=== PATIENT | female | born 1960 | race Caucasian/White ===

== ENCOUNTER → 2020-04-28 15:00 | Outpatient (ROUT) | payer OTHER, SELFPAY ==
[2020-04-28 15:29] LABS: Add Manual Diff / Slide Review NO; Basophils Absolute Auto 100 /uL (0-100); Basophils Percent Auto 1.2 % (0-2); Eosinophils Absolute Auto 200 /uL (0-450); Eosinophils Percent Auto 2.6 % (2-4); Hematocrit 39.4 % (36-46); Hemoglobin 13.1 g/dL (12.0-16.0); Lymphocytes Absolute Auto 2300 /uL (1100-4500); Lymphocytes Percent Auto 29.8 % (25-40); Mean Corpuscular HGB Conc 33.3 % (30-36); Mean Corpuscular Hemoglobin 27.2 PG (26-34); Mean Corpuscular Volume 81.6 fL (80-100); Monocytes Absolute Auto 500 /uL (0-900); Monocytes Percent Auto 6.3 % (3-14); Neutrophils Absolute Auto 4700 /uL (1500-7000); Neutrophils Percent Auto 60.1 % (50-75); Platelet Count 224 X10^3/uL (150-400); Red Blood Cell Count 4.84 X10^6/uL (4.0-5.2); Red Cell Distribution Width 13.6 % (11.6-14.8); White Blood Cell Count 7.8 X10^3/uL (4.5-11.0)
[2020-04-28 15:51] LABS: Alanine Aminotransferase 45 IU/L (<35); Albumin 4.2 g/dL (3.5-5.0); Albumin Globulin Ratio 1.4 (1.0-2.8); Alkaline Phosphatase 79 U/L (38-126); Aspartate Aminotransferase 34 IU/L (14-36); Bilirubin Total 0.4 mg/dL (0.2-1.3); Blood Urea Nitrogen 17 mg/dL (7-17); Calcium 10.1 mg/dL (8.4-10.2); Carbon Dioxide 29 mmol/L (22-32); Chloride 105 mmol/L (98-107); Cholesterol 166 mg/dL (140-199); Estimated Glomerular Filt Rate > 60.0 mL/min (>60); Globulin 2.9 g/dL (1.7-4.1); Glucose 88 mg/dL (80-110); HDL Cholesterol 64 mg/dL (40-60); HEMOLYSIS < 15 (0-50); LDL Cholesterol Calculated 61 mg/dL (<100); Potassium 4.5 mmol/L (3.4-5.1); Sodium 138 mmol/L (137-145); Total Protein 7.1 g/dL (6.3-8.2); Triglycerides 203 mg/dL (35-150)
[2020-04-28 16:17] LABS: TSH w/ Reflex to FT4 1.88 uIU/mL (0.47-4.68)
[2020-04-29 12:38] LABS: Parathyroid Hormone Int 37 pg/mL (15-65)
== END ==
PROVIDERS: Visit Provider Physician Assistant
DX: R01.1 Cardiac murmur, unspecified (principal); I10 Essential (primary) hypertension; R07.9 Chest pain, unspecified; E83.52 Hypercalcemia
CPT/HCPCS: 80053; 80061; 83970; 84443; 85025

== ENCOUNTER → 2022-07-11 06:57 | Outpatient (CLI) | payer OTHER, SELFPAY ==
[2022-07-11 08:07] LABS: Add Manual Diff / Slide Review NO; Basophils Absolute Auto 0 /uL (0-100); Basophils Percent Auto 0.7 % (0-2); Eosinophils Absolute Auto 200 /uL (0-450); Eosinophils Percent Auto 3.4 % (2-4); Hematocrit 37.7 % (36-46); Hemoglobin 12.4 g/dL (12.0-16.0); Lymphocytes Absolute Auto 1900 /uL (1100-4500); Lymphocytes Percent Auto 29.6 % (25-40); Mean Corpuscular Hemoglobin 26.7 PG (26-34); Mean Corpuscular Volume 80.8 fL (80-100); Monocytes Absolute Auto 400 /uL (0-900); Monocytes Percent Auto 6.5 % (3-14); Neutrophils Absolute Auto 3900 /uL (1500-7000); Neutrophils Percent Auto 59.8 % (50-75); Platelet Count 205 X10^3/uL (150-400); Red Blood Cell Count 4.66 X10^6/uL (4.0-5.2); Red Cell Distribution Width 13.7 % (11.6-14.8); White Blood Cell Count 6.4 X10^3/uL (4.5-11.0)
[2022-07-11 08:31] LABS: BUN Creatinine Ratio 26.5 (6-22); Blood Urea Nitrogen 18 mg/dL (7-17); Calcium 9.3 mg/dL (8.4-10.2); Carbon Dioxide 29 mmol/L (22-32); Chloride 100 mmol/L (98-107); Estimated Glomerular Filt Rate > 60 mL/min (>60); Glucose 156 mg/dL (80-110); HEMOLYSIS < 15 (0-50); Potassium 4.1 mmol/L (3.4-5.1); Sodium 136 mmol/L (137-145)
== END ==
LOC: LAB 07:03 → RESP 07:21
PROVIDERS: Referring Provider Orthopaedic Surgery Orthopaedic Surgery of the Spine; Visit Provider Orthopaedic Surgery Orthopaedic Surgery of the Spine
DX: Z01.818 Encounter for other preprocedural examination (principal); Z01.812 Encounter for preprocedural laboratory examination
CPT/HCPCS: 36415; 80048; 85025; 93005; 93010

== ENCOUNTER 2022-08-01 08:04 | Inpatient (IN) | payer OTHER, SELFPAY ==
[2022-07-12 07:37] VITALS: BMI 25.2
[2022-08-01] VITALS (16 sets, daily range): BP systolic 103–145; BP diastolic 60–93; PULSE 66–89; RESP 10–20; TEMP 36.2–36.8; O2SAT 91–100; BMI 26.1; BMI 28.1
[2022-08-01] MEDS: ACETAMINOPHEN 325 MG TABLET 975 MG PO (08:56)
[2022-08-01] MEDS: GABAPENTIN 600 MG TABLET PO (08:56)
[2022-08-01] MEDS: LACTATED RINGERS 1,000 ML 42 ML IV (08:57)
[2022-08-01 09:02] LABS: COVID19 -Nasal RAPID Negative (Negative)
--- NOTE | 2022-08-01 09:59 | PM.PREOP ---
Pre-operative Note COVID-19 COVID-19 status: Negative Result date/Date tested (Pos, Neg/Pending): 07/31/22 Criteria for continued procedure: Expected advancement of disease process, Possibility delay results in more complex future surgery or treatment, Increased loss of function, Continuing or worsening of significant or severe pain, Deterioration of the patient's condition or overall health and Delay expected to result in less-positive ultimate med/surg outcome Interval Note History & Physical reviewed/Exam performed by Physician: Yes Changes to H&P: No
[2022-08-01] MEDS: CEFAZOLIN 2 GM/100 ML PREMIX 100 ML IV ×2 (10:37→19:35)
--- NOTE | 2022-08-01 10:58 | SUR.OPER ---
Prone on spine table, head in foam head support, padded chest and pelvic supports, gel pad at knees, lower legs supported by pillows; nipples, genitalia and toes free of pressure, arms secured on foam padded arm boards at <90 degrees abduction. Tape over blanket at thigh secured to table.
[2022-08-01] MEDS: BUPIVACAINE 0.25% (PF) 60 ML, EPINEPHrine 0.3 MG INJ (11:03)
[2022-08-01] MEDS: BUPIVACAINE LIPOSOME 266 MG/20 ML VIAL INJ (12:30)
--- NOTE | 2022-08-01 12:42 | PM.OP.1 ---
Operative Date/Time/Diagnoses Date of procedure: 08/01/22 Time of procedure: 10:00 Pre-op diagnosis: 1. L3-4 spinal stenosis with neurogenic claudication 2. Lumbar spondylosis with radiculopathy Post-op diagnosis: same Procedure & Clinicians Procedure: 1. L3-4 Postero-lateral and posterior interbody fusion 2.L3-4 interbody cage placement. 3. L3-4 decompressive laminectomy with bilateral facetecomies 4. L3-4 Posterior non-segmental instrumentation 5. [place] of bone marrow from iliac crest 6. Utilization of microsurgical technique and operating microscope Same procedure as scheduled: Yes Indications: Patient has been having chronic back pain and worsening lumbar radiculopathy and symptoms of neurogenic claudication due to severe spinal stenosis at L3-4 level. Patient failed multiple conservative management with worsening pain weakness and numbness in her lower extremity. Patient has been having difficulty performing activity of daily living. After discussing risks benefits of treatment options, patient elected proceed with surgery. Surgeon: Joel Franks Medical Field Representative: Koki George Click Yes if Unassisted: No Anesthesia Type: General Operative Notes Closure Type: primary Specimen(s): none sent Prosthetic devices, grafts, tissues, transplants, or devices: Globus revolve screws, Rise cage Estimated Blood Loss (mL): 20 Blood products transfused: none Procedure in detail: Patient was seen in the preoperative area. Risks and benefits of the surgery was discussed with the patient. Informed consent was obtained from the patient and placed in the chart. Surgical site was marked. Patient was taken to the operative room. General anesthesia was administered. Prophylactic antibiotic was given to the patient less than 30 min before the incision was made. Patient was placed into a prone position on the Phillip table. Patient's back was then prepped and draped in the sterile fashion. Time-out was performed at this time. Using AP and lateral C-arm imaging the interval between L3-4 was identified and marked on patient's back. A 2 inch incision 2 in from midline was made on the left side first. The fascia was incised in line with skin incision. Globus MARS retractors was placed inside the incision and docked onto the L3 lamina. Using microsurgical technique and operating microscope, a L3 laminectomy and L3-4 facetectomy was performed using a Kerrison rongeur. Significant laminectomy bone along with facetectomy rendered the L3-4 level grossly unstable and required a fusion procedure at same time. The disc space at L3-4 was identified. And a total diskectomy was performed at L3-4 level. The endplates were decorticated using a rasp and shaver. The total diskectomy and decortication was performed at L3-4 level in order to to accomplish a L3-4 fusion. The local bone from the laminectomy and facetectomy was saved for local bone grafting. After the total diskectomy and decortication was completed, Trifecta bone graft material was combined with local bone that was harvested earlier. At this time, a separate skin is incision was made over the iliac crest. A Jamshidi needle was inserted into the iliac crest through a separate skin incision. 5 cc of bone marrow aspiration was obtained through the separate skin incision using a Jamshidi needle from the iliac crest. The bone marrow aspiration was combined with local bone and the Trifecta bone grafting material. The bone grafting material was placed into the L3-4 interbody space along with a expandable cage. The cage was expanded to its maximum height using the torque limiting screwdriver. At this time a mirror image incision was made on the right side. The fascia was incised in line with the skin incision. Globus MARS retractor was inserted and docked onto the L4-5 posterolateral gutter. Using the power drill, posterior-lateral decortication was performed at L3-4 level until bleeding cortical bone was identified. The remaining bone grafting material was placed into the L4-5 posterior lateral gutter he order to accomplish posterolateral fusion at the L3-4 level. Using the double C-arm technique, pedicle screws were placed into the L3-4 pedicles bilaterally. This was done by placing the Jamshidi needle into the pedicles, then placing the guidewires over the Jamshidi needle, and finally placing the cannulated screws over the guidewires bilaterally. After the pedicle screws were placed, 2 titanium rods was locked into the heads of the pedicle screws using locking caps and torque limiting screwdriver. After all the hardware was placed, and confirmed with AP and lateral C-arm imaging, the wound was then irrigated with sterile normal saline and packed with Ray-Addy gauze for 3 min to accomplish hemostasis. After the gauze was removed the deep fascia was closed with #1 Vicryl suture. The subcutaneous layer was closed with 2-0 Vicryl. The skin was closed with skin yogesh. Patient tolerated the procedure well. There were no complications. The Operation could not have been safely performed without compromising the technical result or length of the procedure, without the assistance of a skilled certified ophthalmic surgical assistant. The certified ophthalmic surgical assistant was medically necessary for proper positioning, retraction and manipulation of instruments, proper exposure, surgical preparation, and manipulation of tissue. Complications: none Post-operative Condition: stable Disposition: PACU Plan for aftercare: Admit to inpatient hospital
--- NOTE | 2022-08-01 12:43 | DI.RAD.S_ITS ---
PROCEDURE: XR LUMBAR SPINE 2-3V INDICATIONS: L3-4 TLIF TECHNIQUE: 2 views of the lumbar spine were acquired. COMPARISON: None. FINDINGS: Fluoroscopic guidance utilized for an L3-4 posterior and interbody surgical fusion. IMPRESSION: Fluoroscopic guidance utilized for an L3-4 posterior and interbody surgical fusion. Dictated by: Jarrett Moraes M.D. on 08/01/2022 at 13:37 Approved by: Jarrett Moraes M.D. on 08/01/2022 at 13:38
[2022-08-01] MEDS: fentaNYL 100 MCG/2 ML INJ IV (13:05)
[2022-08-01] MEDS: hydrOXYzine 50 MG/ML INJ 25 MG IM (13:08)
[2022-08-01] MEDS: HYDROMORPHONE 2 MG INJ IV (13:25)
[2022-08-01] MEDS: LACTATED RINGERS 1,000 ML 120 ML IV (13:30)
--- NOTE | 2022-08-01 14:09 | SUR.PHASEI ---
pt transfered to room 226 in bed by this Rn with one belongings bag. Updated SBAR at bedside.
[2022-08-01] MEDS: LACTATED RINGERS 1,000 ML 125 ML IV ×2 (14:10→23:18)
--- NOTE | 2022-08-01 14:33 | PC.NURSE ---
Arrives from PACU. Pt left side lying. Continues to emerge from anesthesia. Mostly sleeping. Answers simple questions. Reports she is comfortable at this time. Luis Eduardo at bedside. 130/72 HR 77 96% RA. 20 G R wrist PIV with LR infusing at controlled rate.
[2022-08-01] MEDS: HYDROMORPHONE 0.5 MG INJ IV ×2 (15:58→19:34)
[2022-08-01] MEDS: ONDANSETRON 4 MG/2 ML INJ IV (15:58)
--- NOTE | 2022-08-01 17:29 | PC.NURSE ---
Pt OOB using walker with minimal assist to the bathroom. Pt voided urine successfully and ambulated back to bed with standby assist. Pt states pain controlled at this time.
[2022-08-01 18:36] LABS: MRSA (Nasal) PCR Not Detected (Not Detect)
[2022-08-01] MEDS: METFORMIN HCL 500 MG TABLET 1000 MG PO (20:59)
[2022-08-01] MEDS: SENNOSIDES 8.6 MG TABLET 17.2 MG PO (20:59)
[2022-08-01] MEDS: DOCUSATE 100 MG CAPSULE PO (20:59)
[2022-08-02] VITALS: BP 124/60; PULSE 92; RESP 17; TEMP 37; O2SAT 98
[2022-08-02] MEDS: OXYCODONE IR 10 MG TABLET PO ×5 (00:03→15:21)
[2022-08-02] MEDS: CEFAZOLIN 2 GM/100 ML PREMIX 100 ML IV (02:57)
[2022-08-02 04:00] VITALS: BP 116/61; PULSE 89; RESP 17; TEMP 36.5; O2SAT 98
--- NOTE | 2022-08-02 05:23 | PC.NURSE ---
Patient transitioned from iv pain medication to po with success. Pain relief obtained and patient able to ambulate without assistance to bathroom and use IS well.
[2022-08-02] MEDS: hydrOXYzine pamoate 25 MG CAPSULE PO (09:10)
[2022-08-02] MEDS: METFORMIN HCL 500 MG TABLET 1000 MG PO (09:10)
[2022-08-02] MEDS: DOCUSATE 100 MG CAPSULE PO (09:10)
[2022-08-02] MEDS: ACETAMINOPHEN 325 MG TABLET 650 MG PO ×2 (09:15→15:21)
--- NOTE | 2022-08-02 11:22 | OT.IPNOTE ---
Touched base with pt regarding OT needs. Pt just seen by PT and states have no OT needs. Able to reiterate suggestions for OT needs and safety. To check the pt if still here tomorrow.
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
[2022-08-02 13:00] VITALS: BP 98/54; PULSE 80; RESP 18; TEMP 37; O2SAT 100
--- NOTE | 2022-08-02 14:13 | CM.DANOTE ---
DCP: Case received, EMR reviewed and met with patient. Spouse, Mark, was at bedside. Introduced self and role. Completed DCP assessment based upon information currently available. Patient is a 62 year old female who admitted yesterday morning to the care of the orthopedic team. PCP: Dr. Garcia. Payer: confirmed: [facility]. Patient came to the hospital via private vehicle for a surgical procedure. Patient had L3-4 postero-lateral and posterior interbody fusion. Patient has history of spinal stenosis with neurogenic claudication. Met with patient and spouse in her room. Confirmed that they both reside in [facility]. Patient is alert and oriented, laying in bed. 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 Patient did work with [employer]. yesterday. P: Patient has discharge orders for home today, she will work again with P.T. Spouse indicated that they have one step to get into the house. Rosa Kent RN/Dumpster Driver Discharge Planning/Care Management CM Discharge Assessment Start: 08/02/22 14:06 Freq: Status: Active Protocol: Document 08/02/22 14:07 (Rec: 08/02/22 14:12 [id number]) Discharge Planning Assessment Assigned Supervisor Mill Rosa Kent RN/Dumpster Driver Advance Directives? No History Provided By Family Member,Medical Record Prior Living Arrangements House Household Members spouse,children Type of transporation used prior to Drives own vehicle admit Independent with ADL's Yes Is patient alert and oriented? Yes Caregiver for Another No Barriers to Discharge No Discharge Plan Home Transportation Arrangement Spouse Referrals Initiated None needed Whiteboard Updated in Patient Room with Yes name and ext. # of Supervisor Mill Review Status In Process Next Review Type Continued Stay Review Pre-Anesthesia Assessment Start: 07/12/22 07:36 Freq: Status: Active Protocol: Document 07/12/22 07:37 CAB (Rec: 07/12/22 09:22 CAB [id number]) Pre-Anesthesia Assessment Preferred Name Alyssa or Rosa Patient Information Reviewed Via Phone Assessment Assessment Completed With Patient Diagnostic Results BMP/CMP,CBC,EKG Comment Labs/EKG @ [facility] 07/11/22 Primary Care Provider Anita Garcia Seen Specialist in Last 12 Months Yes Specialist Seen [facility] [employer],Orthopedist Primary Language Georgian Supervisor Gas Meter Repair Required No Height 5 ft 5 in Weight 152 lb Body Mass Index (BMI) 25.2 Hearing Ability Normal Visual Assist Glasses Dentition Type Teeth, Natural Present,Teeth, Missing Barriers to Learning None Hx Anesthesia Reactions Yes: I don't come out of it very easily, hard to wake up Hx Family Anesthesia Reaction No Hx Malignant Hyperthermia No Hx Blood Transfusions No Anesthesia Review Requested No 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 No Does patient have HU/SOB No Hx Sleep Apnea No Currently Taking a Beta Krystal No Can You Climb a Flight of Stairs Without Yes SOB Hx Chest Pain No Hx SOB No Hx Syncope or Dizziness No Anti-Coagulant Therapy No Has a Bear Keeper No Cardiac Testing No Hx Pacemaker/ICD No Pacemaker Rep Required? 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 Received a COVID vaccine? Yes Received all doses? Yes Marital Status Lives With spouse,children Current Living Arrangements House Number of Floors (Floors) One Floor Number of Stairs To Enter/Railing? None Support System Child/Children,Spouse Does the Patient Have Assistance After Yes Surgery Patient Discharge Plan Description Return Home Comment Pt advised possible overnight length of stay per surgeon Feels Safe in Current Environment Yes Been Physically Hurt or Threatened By a No Person in Current Environment Do you have thoughts of harming yourself None or others? Are you currently considering suicide? No Do you have a plan to hurt yourself or No Plan others? Do You Have Any Spiritual Beliefs That No May Affect Your HC Choices? Do You Have Any Cultural Practices That No May Affect Your HC Choices? Comment LDS Who Can We Speak to About Patient's Care Family, friends Identifying Code for Release of Patient Declines to issue Information Health Care Proxy/Next of Kin Luis Eduardo () Health Care Proxy Emergency Contact Name Luis Eduardo () Emergency Contact Advance Directives? No Power of Calender Tender No PAC Instructions Diabetes instructions,Durable medical equipment,Medications to take/avoid,Nasal antibiotic ,No ETOH/petroleum product on skin DOS,NPO,Post-op transportation,Pre-surgical wash,Sensory aids,Sturdy shoes /comfortable clothes,Do not bring valuables and remove jewelry
--- NOTE | 2022-08-02 16:56 | PC.NURSE ---
Pt is A&OX3, VSS, afebrile on RA. Pt tolerates meals well this a.m. She is able to work with PT this a.m. and cleared for discharge home with . PA evaluated patient and clearing her for discharge home today. Dressing to back changed. Emilia c/d/i without redness /swelling or any drainage. She reports pain is well controlled with prn oxycodone and tylenol. She verbalizes understanding of discharge activity limitations, site care s/sx of infection, medications as well as follow up post-op appointment with MD Franks's office. She is escorted via w/chair this afternoon, with all of her belongings to private vehicle with her for discharge home this afternoon at approximately 1610.
== END 2022-08-02 16:10 | disposition home or self-care (01) | DRG 455 ==
LOC: AC 08:09 → ICU 10:57
PROVIDERS: Admitting Provider Orthopaedic Surgery Orthopaedic Surgery of the Spine; PCP Student in an Organized Health Care Education/Training Program; Referring Provider Orthopaedic Surgery Orthopaedic Surgery of the Spine; Visit Provider Orthopaedic Surgery Orthopaedic Surgery of the Spine
PROC: 0SG00AJ Fusion of Lumbar Vertebral Joint with Interbody Fusion Device, Posterior Approach, Anterior Column, Open Approach (ICD-10-PCS; principal; 2022-08-01 09:45)
DX: M48.062 Spinal stenosis, lumbar region with neurogenic claudication (principal); M43.16 Spondylolisthesis, lumbar region; M47.26 Other spondylosis with radiculopathy, lumbar region; E11.9 Type 2 diabetes mellitus without complications; Z20.822 Contact with and (suspected) exposure to COVID-19; Z79.84 Long term (current) use of oral hypoglycemic drugs
CPT/HCPCS: 72100; 76000; 82962; 87635; 87797; 97161; C9803; C1713; C1831; C9290; J0171; J0330; J0690; J1100; J1170; J2405; J2704; J3010; J3410